=== PATIENT | male | born 1965 | race Caucasian/White ===

== ENCOUNTER → 2025-05-09 13:38 | Outpatient (BNVA) | payer SELFPAY | PROVIDERS: Visit Provider Emergency Medicine | DX: Z02.79 Encounter for issue of other medical certificate (principal) ==

== ENCOUNTER 2025-05-09 15:34 | Emergency (ER) | payer MEDICAID, SELFPAY ==
--- NOTE | 2025-05-09 | ECG_ITS ---
Test Reason : AFIB Blood Pressure : */* mmHG Vent. Rate : 147 BPM Atrial Rate : * BPM P-R Int : * ms QRS Dur : 82 ms QT Int : 308 ms P-R-T Axes : * 40 16 degrees QTcB Int : 482 ms Atrial fibrillation with rapid ventricular response Abnormal ECG No previous ECGs available Referred By: Generic ED Physician Electronically Signed By: CORINNA MAO
[2025-05-09 15:52] VITALS: BP 149/83; PULSE 92; RESP 18; TEMP 36.7; O2SAT 96; BMI 43.9
[2025-05-09 15:58] VITALS: PULSE 142; RESP 16; O2SAT 95
--- NOTE | 2025-05-09 16:08 | PC.NURSE ---
Pt awake and alert. Presents from [employer] for rapid heart rate and HTN. Pt denies any symptoms. Denies CP/SOB. Denies hx of cardiac issues. Recent URI, had been taking Mucinex. Breathing equal and unlabored. Heart rate in 120s-140s A Fib. Other vitals stable. PIV placed, labs sent and on monitor. No acute distress noted.
[2025-05-09 16:11] LABS: MANUAL DIFF FLAG NO
[2025-05-09 16:16] LABS: Hematocrit 48.4 % (42.0-52.0); Hemoglobin 16.1 g/dl (14.0-18.0); Imm Gran Abs Auto 0.03 X10*3/uL (0.00-0.03); Imm Gran Pct Auto 0.4 % (0.0-0.4); Lymphocytes Absolute Auto 1.8 X10*3/uL (1.2-4.9); Mean Corpuscular HGB Conc 33.3 g/dl (31.0-36.0); Mean Corpuscular Hemoglobin 29.7 pg (27.0-33.0); Mean Corpuscular Volume 89.3 fL (80.0-98.0); NRBC Abs Auto 0.000 X10*3/uL (0.0-0.012); NRBC Pct Auto 0.0 /100WBC (0.0-0.2); Platelet Count 189 X10*3/uL (160-400); Red Blood Count 5.42 X10*6/uL (4.60-5.80); White Blood Count 8.4 X10*3/uL (4.8-10.8)
[2025-05-09 16:19] LABS: INTERNATIONAL NORM RATIO 1.1 (0.9-1.1); Prothrombin Time 12.1 SEC (10.9-12.4)
[2025-05-09 16:22] LABS: Partial Thromboplastin Time 30.3 SEC (26.7-34.1)
[2025-05-09 16:35] LABS: Alanine Aminotransferase 26 U/L (0-40); Albumin Level 4.1 g/dL (3.5-5.0); Alkaline Phosphatase 57 U/L (39-117); Anion Gap 12 (12-20); Aspartate Amino Transferase 33 U/L (5-37); Blood Urea Nitrogen 15 mg/dL (9-16); Calcium 9.1 mg/dL (8.4-10.2); Carbon Dioxide 29 mmol/L (22-29); Chloride 107 mmol/L (96-108); Creatinine Clr Calc Pharmacy 107.6; Estimated Glomerular Filt Rate > 60; Potassium 4.7 mmol/L (3.3-5.1); Sodium 143 mmol/L (135-145); Total Protein 7.2 g/dL (6.5-8.0); Troponin-I High Sensitivity 2.7 ng/L (<3.5-35.0)
--- NOTE | 2025-05-09 17:03 | ED.ARRPALP ---
HPI - Arrhythmia/Palpitations General Chief Complaint: Arrhythmia/Palpitations Stated Complaint: ?Afib Time Seen by Provider: 05/09/25 16:37 History of Present Illness ED Provider: Edvin Payne MD HPI narrative: This is a 60-year-old male reports to me no significant diagnosed history has not seen a primary physician in about 8 years. He was at a department transportation physical examination today upstairs in our hospital we found incidental rapid atrial fibrillation sent for evaluation patient is asymptomatic chest pain subjective palpitations difficulty breathing. He does occasionally snore he reports he has a few days a week where he is drinking alcohol beverages does not report any withdrawal syndrome no drugs. Related Data Previous Rx's ?Medication ?Instructions ?Recorded apixaban 5 mg tablet 5 mg PO BID 4 weeks #56 tabs 05/09/25 diltiazem HCl 120 mg 120 mg PO BID 4 weeks #56 caps 05/09/25 capsule,extended release 12 hr (Cardizem SR) Allergies Allergy/AdvReac Type Severity Reaction Status Date / Time No Known Allergies Allergy Verified 05/09/25 15:53 [facility] Social History Social History Smoked in Last 30 Days: Yes Use of substances other than those prescribed or required for medical reasons: Yes Substance Use Type: Marijuana Advance Directives: No Advance Directives Information Provided: No Physical Exam Exam: Exam: EXAM: Gen: Alert, awake, well appearing, well hydrated. Obese Head: Atraumatic Eyes: Anicteric, Normal conjunctiva. ENT: Moist mucosa, no pallor. ? Neck: Supple. Skin: ?No observable rash or bruising on exposed or examined skin Respiratory: Breathing comfortably, No distress.Clear to auscultation bilaterally, symmetric chest expansion, No wheeze, rales, ronchi. Cardiovascular: Irregularly irregular and rapid. No murmurs or rub. Well perfused periphery, warm extremities. No edema. ? Abdominal: No focal tenderness. Soft, no objective distension. No palpable masses or obvious organomegaly. ?No guarding, no rebound tenderness or other peritoneal findings. : No flank tenderness. Neuro: Alert. Gross movement of all extremities intact. ? Psych: Calm. Cooperative. MSK: No grossly visible deformity. Vital signs: See flowsheet Vital Signs: Vital Signs: Last Vital Signs Temp 0 F L 05/09/25 17:46 Pulse 88 05/09/25 18:11 Resp 16 05/09/25 18:11 BP 147/92 H 05/09/25 18:11 Pulse Ox 98 05/09/25 17:46 O2 Del Method Room Air 05/09/25 15:58 BMI result Body Mass Index 43.9 Medications Administered Discontinued Medications Generic Name Dose Route Start Last Admin Trade Name Portia PRN Reason Stop Dose Admin Diltiazem HCl 20 mg 05/09/25 17:02 05/09/25 17:13 Diltiazem Hcl 50 Mg/10 Ml Vial IVPUSH 05/09/25 17:03 20 mg ONCE ONE Administration Protocol Diltiazem HCl 30 mg 05/09/25 17:01 05/09/25 17:17 Diltiazem Hcl 30 Mg Tablet PO 05/09/25 17:02 30 mg ONCE ONE Administration Protocol Sodium Chloride 1,000 mls @ 999 mls/hr 05/09/25 17:15 05/09/25 18:10 Ns IV 05/09/25 18:15 Infused .Q1H1M ALYSA Infusion Medical Decision Making Medical Decision Making MDM Narrative: Medical Decision Making: [age] male arrives with asymptomatic new onset atrial fibrillation, slightly tachycardic. Completely asymptomatic here and in the past few days. He has not seen a doctor in years. Probably has MILES on diagnosed. Overweight occasional alcohol use sounds like it is heavy. He is not withdrawing actively. No actionable lab findings. As below calculated he does have stroke risk that should be mitigated with anticoagulation C score is calculated below. Rate control effective in ED. Initiation of anticoagulation. Case management consulted who has offered assistance with discounted apixaban and other coupons for diltiazem. I urged strongly the patient seek close follow up with PCP Not clinically overloaded. No symptomatology or clinical signs to suggest DVT doubt PE. Doubt ACS. No actionable lab work Preliminary Favored Differential Diagnosis: Electrolyte derangement, thyroid disorder, dehydration, alcohol use disorder, obesity, new onset AFib, AFib with RVR among additional considered etiologies Testing Interpreted Independently: AFib with RVR over 110 rate. No ischemic changes no overt RV strain Radiology or Lab testing Results Reviewed: ?See below for details Consults: ?See below for details Independent Historians/External Chart Reviews: ?See below for details Social Determinants of Health Impacting MDM/Planning: ?See below for details _ SCore: WON?DS?-VASc Score for Atrial Fibrillation Stroke Risk from [facility] [email or web address] on 05/09/2025 All calculations should be rechecked by clinician prior to use RESULT SUMMARY: 1 points Stroke risk was 0.6% per year in >90,000 patients (the [place] Atrial Fibrillation Cohort Study) and 0.9% risk of stroke/TIA/systemic embolism. INPUTS: Age ?> 0 = <65 Sex ?> 0 = Male CHF history ?> 0 = No Hypertension history ?> 1 = Yes Stroke/TIA/thromboembolism history ?> 0 = No Vascular disease history (prior HI, peripheral artery disease, or aortic plaque) ?> 0 = No Diabetes history ?> 0 = No Lab Data 05/09/25 16:05 05/09/25 16:05 Labs: Lab Results 05/09/25 Range/Units 16:05 WBC 8.4 (4.8-10.8) X10*3/uL RBC 5.42 (4.60-5.80) X10*6/uL Hgb 16.1 (14.0-18.0) g/dl Hct 48.4 (42.0-52.0) % MCV 89.3 (80.0-98.0) fL MCH 29.7 (27.0-33.0) pg MCHC 33.3 (31.0-36.0) g/dl RDW 13.4 (11.0-16.0) % Plt Count 189 (160-400) X10*3/uL MPV 10.3 (9.4-12.4) fL Immature Gran % (Auto) 0.4 (0.0-0.4) % Neut % (Auto) 65.8 (45-73) % Lymph % (Auto) 21.5 (20-40) % [place] % (Auto) 10.7 (2-11) % Eos % (Auto) 1.1 (0-4) % Baso % (Auto) 0.5 (0-2) % Lymph # (Auto) 1.8 (1.2-4.9) X10*3/uL [place] # (Auto) 0.9 (0.1-1.2) X10*3/uL Eos # (Auto) 0.1 (0.0-0.4) X10*3/uL Baso # (Auto) 0.0 (0.0-0.2) X10*3/uL Abs Immat Gran (auto) 0.03 (0.00-0.03) X10*3/uL Absolute Neuts (auto) 5.6 (2.0-8.3) x10*3/uL Absolute Nucleated RBC 0.000 (0.0-0.012) X10*3/uL Nucleated RBC % (auto) 0.0 (0.0-0.2) /100WBC PT 12.1 (10.9-12.4) SEC INR 1.1 (0.9-1.1) APTT 30.3 (26.7-34.1) SEC Sodium 143 (135-145) mmol/L Potassium 4.7 (3.3-5.1) mmol/L Chloride 107 (96-108) mmol/L Carbon Dioxide 29 (22-29) mmol/L Anion Gap 12 (12-20) BUN 15 (9-16) mg/dL Creatinine 1.03 (0.5-1.4) mg/dL Estim Creat Clear Calc 107.6 Estimated GFR > 60 Random Glucose 88 (60-115) mg/dL Calcium 9.1 (8.4-10.2) mg/dL Magnesium 1.9 (1.6-2.6) mg/dL Total Bilirubin 0.8 (0.0-1.0) mg/dL AST 33 (5-37) U/L ALT 26 (0-40) U/L Alkaline Phosphatase 57 (39-117) U/L Troponin I High Sens 2.7 (<3.5-35.0) ng/L Total Protein 7.2 (6.5-8.0) g/dL Albumin 4.1 (3.5-5.0) g/dL TSH 2.07 (0.32-4.0) uIU/mL Discharge Plan Discharge Clinical Impression: Atrial fibrillation Patient Disposition: Home, Self-Care Instructions: A-fib (Atrial Fibrillation) (ED), Blood Thinners (ED) Additional Instructions: DISCHARGE DIAGNOSES: Abnormal heart rhythm atrial fibrillation HISTORY OF PRESENTATION: ?Arrhythmia incidentally found on a [employer] physical EMERGENCY DEPARTMENT COURSE,TESTS, TREATMENTS: While in the ED today you had blood counts, electrolytes and blood chemistry testing that was without concerning findings. EKG did show rapid atrial fibrillation DISCHARGE MEDICATIONS: ?We are starting you on a blood thinner to prevent stroke in the setting of atrial fibrillation. We are also starting a medication to lower the heart rate and keep it in a safe rate FOLLOW-UP: ?Call your primary or general physician soon as possible to discuss your symptoms, your ED visit and to discuss follow up plans Call to establish primary care INSTRUCTIONS ?& RETURN PRECAUTIONS: If any symptoms change first call your primary physician, if it is after-hours your primary doctors office should have a provider head insulation board saw operator you can speak with. If the symptoms are severe or very concerning to you then call 911 or return to the ED. Return for severe chest pain severe rapid palpitations, heart rate over 120 beats per minute persistently without exercise Edvin Payne MD Emergency Physician [facility] Prescriptions: New diltiazem HCl [Cardizem SR] 120 mg capsule,extended release 12 hr 120 mg PO BID 28 Days Qty: 56 0RF apixaban 5 mg tablet 5 mg PO BID 28 Days Qty: 56 0RF Interventions: ED Discharge Assessment Last Done: 05/09/25 17:46 Discharge Date/Time: 05/09/25 18:18 Print Language: Ecuadorean
[2025-05-09 17:13] VITALS: BP 142/85; PULSE 128
[2025-05-09 17:17] VITALS: BP 142/85; PULSE 128
[2025-05-09 17:43] LABS: Magnesium 1.9 mg/dL (1.6-2.6)
[2025-05-09 17:46] VITALS: BP 142/85; PULSE 82; RESP 16; TEMP -17.7; TEMP 0; O2SAT 98
[2025-05-09 18:11] VITALS: BP 147/92; PULSE 88; RESP 16
--- NOTE | 2025-05-09 18:17 | PC.NURSE ---
Pt provided with Eliquis coupon and Good RX cards.
--- NOTE | 2025-05-09 18:58 | MHC.CM.ED ---
CM received consult. Pt does not have insurance and concerns about paying for medications. New onset afib. Pt was discharged before CM could speak with him. CM had given primary RN a Good RX card and and Jazmin coupon, which she gave to the patient.
== END 2025-05-09 18:18 | disposition home or self-care (01) ==
PROVIDERS: Physician Assistant; Emergency Provider Emergency Medicine
DX: I48.91 Unspecified atrial fibrillation (principal); R00.2 Palpitations
CPT/HCPCS: 36415; 80053; 83735; 84443; 84484; 85025; 85610; 85730; 93005; 96361; 96374; 99284; 99285; J1163

== ENCOUNTER → 2025-05-09 15:47 | Outpatient (BNV) | payer MEDICAID, SELFPAY | PROVIDERS: Emergency Provider Emergency Medicine; Visit Provider Internal Medicine | DX: I48.91 Unspecified atrial fibrillation (principal) | CPT/HCPCS: 93010 ==